=== PATIENT | female | born 1980 | race American Indian/Alaskan Native ===

== ENCOUNTER 2017-02-10 10:26 | Emergency (ER) | payer MEDICAID ==
[2017-02-10 11:06] VITALS: BP 125/79
[2017-02-10] MEDS ORDERED: Ketorolac 60 MG/2 ML SDV IM ONE (11:30)
[2017-02-10] MEDS ORDERED: Ondansetron 4 MG Tab.DIS PO ONE (11:30)
--- NOTE | 2017-02-10 11:36 | EDM.PDOC ---
ED HPI GENERAL MEDICAL PROBLEM - General Chief Complaint: Gastrointestinal Problem Stated Complaint: WITHDRAWLS Time Seen by Provider: 02/10/17 11:26 Source of Information: Reports: Patient, RN notes reviewed History Limitations: Reports: No limitations - History of Present Illness INITIAL COMMENTS - FREE TEXT/NARRATIVE: 36-year-old female presents emergency department for a complaint of methadone withdrawal she follows with the [facility] in [facility] she was scheduled to receive a dose of methadone this morning unfortunately she missed her ride last dose was last night and she has a ride set up for Sunday. She states her symptoms are nausea and vomiting and generalized muscle aches - Related Data Allergies Allergy/AdvReac Type Severity Reaction Status Date / Time No Known Allergies Allergy Verified 05/13/16 03:44 Home Meds: Home Meds Citalopram Hydrobromide [Celexa] 02/10/17 [History] Methadone 02/10/17 [History] Past Medical History Musculoskeletal History: Reports: Arthritis Psychiatric History: Reports: Addiction - Past Surgical History Female Surgical History: Reports: section Social & Family History - Tobacco Use Smoking Status *Q: Never Smoker Years of Tobacco use: 0 Packs/Tins Daily: 0 - Recreational Drug Use Recreational Drug Type: Reports: Vicodin ED ROS GENERAL - Review of Systems Review Of Systems: See Below Constitutional: Denies: fever, chills HEENT: Reports: No symptoms Respiratory: Reports: No Symptoms Cardiovascular: Reports: No symptoms GI/Abdominal: Reports: Nausea, Vomiting. Denies: Abdominal pain Musculoskeletal: Reports: muscle pain Skin: Reports: no symptoms Neurological: Reports: No Symptoms Psychiatric: Reports: Agitation ED EXAM, GENERAL - Physical Exam Exam: See Below Exam Limited By: No limitations General Appearance: alert, WD/WN, no apparent distress Eye Exam: bilateral eye: normal inspection Respiratory/Chest: no respiratory distress, lungs clear, normal breath sounds, no accessory muscle use Cardiovascular: regular rate, rhythm, no murmur GI/Abdominal: soft, non tender Course - Vital Signs Last Recorded V/S: Last Vital Signs Temp 96.2 F 02/10/17 11:04 Pulse 62 02/10/17 11:04 Resp 14 02/10/17 11:04 BP 125/79 02/10/17 11:04 Pulse Ox 98 02/10/17 11:04 - Orders/Labs/Meds Orders: Active Orders 24 hr Category Date Time Status Ketorolac [Toradol] Med 02/10/17 11:30 Once 60 mg IM ONETIME ONE Ondansetron [Zofran ODT] Med 02/10/17 11:30 Once 4 mg PO ONETIME ONE Departure - Departure Time of Disposition: 11:35 Disposition: Home, Self-Care 01 Condition: good Clinical Impression: Methadone dependence Forms: ED Department Discharge Additional Instructions: uses Zofran as needed for nausea and vomiting symptoms, please keep your appointment with the methadone clinic on Sunday - My Orders Last 24 Hours: My Active Orders 02/10/17 11:30 Ketorolac [Toradol] 60 mg IM ONETIME ONE Ondansetron [Zofran ODT] 4 mg PO ONETIME ONE - Assessment/Plan Last 24 Hours: My Active Orders 02/10/17 11:30 Ketorolac [Toradol] 60 mg IM ONETIME ONE Ondansetron [Zofran ODT] 4 mg PO ONETIME ONE Plan: Assessment Acuity = chronic Site and laterality = methadone use complicated with anxiety or withdrawal symptoms Etiology = probably related to anxiety versus methadone withdrawal as it is less than 12 hours for previous dose Manifestations = nausea and vomiting Location of injury = home Lab values = none Plan I felt that she is not displaying any symptoms of narcotic withdrawal with normal vital signs and I am not licensed to dispense methadone for the treatment of opioid withdrawal. I did offer her symptomatic care Zofran for nausea and vomiting symptoms with Toradol for muscle keep her appointment with the methadone clinic on Sunday Patient was in agreement with the plan all questions were answered, they were instructed to return to the emergency department or call for worsening symptoms. This note was dictated using [employer] voice recognition software please call with any questions.
== END 2017-02-10 12:14 | disposition home or self-care (01) ==
LOC: JP.ED 10:26
DX: F11.20 Opioid dependence, uncomplicated (principal); Z98.890 Other specified postprocedural states
CPT/HCPCS: 96372; 99284; A9270; J1885